=== PATIENT | female | born 1985 ===

== ENCOUNTER 2022-09-20 06:52 | Inpatient (IN) ==
[2022-09-20] MEDS ORDERED: OXYTOCIN/LR 20 UNIT/1,000 ML BAG IV ONE ×2 (07:09→13:21)
[2022-09-20] MEDS ORDERED: miSOPROStoL 200 MCG TABLET RECTAL PRN (07:09)
[2022-09-20] MEDS ORDERED: CLINDAMYCIN INJ 900 MG/50 ML PREMIX IV ONE (07:09)
[2022-09-20] MEDS ORDERED: CITRIC ACID/SODIUM CITRATE 30 ML UDCUP PO ONE (07:09)
[2022-09-20] MEDS ORDERED: TRANEXAMIC ACID 1,000 MG in SODIUM CHLORIDE 0.9% 100 ML IV PRN (07:09)
[2022-09-20] MEDS ORDERED: FAMOTIDINE 20 MG/2 ML VIAL IV ONE (07:09)
[2022-09-20] MEDS ORDERED: CARBOPROST TROMETHAMINE 250 MCG/ML AMP IM PRN (07:09)
[2022-09-20] MEDS ORDERED: METHYLERGONOVINE 0.2 MG/1 ML AMP IM PRN (07:09)
[2022-09-20] MEDS: LACTATED RINGERS 1,000 ML IV SCH ×2 (07:36→20:57)
[2022-09-20] MEDS ORDERED: OXYTOCIN 10 UNIT/ML VIAL IM ONE (07:41)
[2022-09-20] MEDS ORDERED: OXYTOCIN/LR 30 UNIT/1,000 ML BAG IV ONE (07:41)
[2022-09-20 07:52] LABS: Basophils % 0.3 % (0.0-0.8); Eosinophils # 0.1 10*3/uL (0.0-0.87); Eosinophils % 1.2 % (0.00-10.9); Hematocrit 33.7 VOL% (35.7-47.0); Immature Granulocytes % 0.7 %; Immature Granulocytes Absolute 0.05 #; Lymphocytes # 2.1 10*3/uL (1.4-4.0); Lymphocytes % 26.9 % (21.3-54.2); Mean Corpuscular HGB Conc 32.6 GM/DL (32-36); Mean Corpuscular Volume 85.8 FL (87-102); Mean Platelet Volume 10.9 FL (9.6-12.0); Monocytes # 0.4 10*3/uL (0.11-0.8); Monocytes % 5.8 % (1.7-12.7); Neutrophils % 65.1 % (38.7-73.9); Platelet Count 224 T/CUMM (130-400); Red Blood Count 3.93 MC/CUMM (3.8-5.5); White Blood Count 7.7 T/CUMM (4-12)
[2022-09-20] MEDS ORDERED: ONDANSETRON 4 MG/2 ML VIAL ONE (07:55)
[2022-09-20] MEDS ORDERED: METOCLOPRAMIDE 10 MG/2 ML VIAL ONE (07:55)
[2022-09-20] MEDS ORDERED: buprenorphine HCL 0.3 MG/ML VIAL ONE (07:55)
[2022-09-20 08:18] LABS: Albumin 2.5 G/DL (3.4-5.0); Bilirubin,Total 0.4 MG/DL (0.20-1.00); Calcium 8.9 MG/DL (8.5-10.1); Osmolality,Calculated 276.4 MOS/KG (273-304)
[2022-09-20] MEDS ORDERED: LACTATED RINGERS 1,000 ML IV ONE (09:21)
[2022-09-20 09:31] LABS: Cord Arterial Blood HCO3 21.4 MMOL/L
[2022-09-20 09:35] LABS: Cord Venous Blood HCO3 21.6 MMOL/L; Cord Venous Blood PCO2 47.8 MMHG; Cord Venous Blood PO2 30.8
[2022-09-20 09:40] LABS: Bacteria,Urine Occasional /HPF (Few); Bilirubin,Urine Negative (Negative); Blood, Urine Negative (Negative); Glucose,Urine (UA) Negative (Negative); Ketones,Urine Negative (Negative); Nitrite,Urine Negative (Negative); Protein,Urine Negative (Negative); RBC,Urine <1 /HPF (0-4); Squamous Epithelial Cell,Urine Occasional /HPF (0-10); Urine Appearance CLEAR (Clear); Urine Color Straw (Yellow); Urine Specific Gravity 1.005 (1.001-1.035); Urine Urobilinogen < 2.0 eU/dL (<2.0)
[2022-09-20] MEDS: ACETAMINOPHEN 500 MG TABLET PO SCH ×2 (13:14→18:59)
[2022-09-20] MEDS: KETOROLAC 30 MG/1 ML VIAL IV SCH ×2 (15:35→22:23)
[2022-09-20] MEDS ORDERED: oxyCODONE/ACETAMINOPHEN 5-325 MG TABLET PO PRN (16:34)
[2022-09-20 17:43] LABS: Basophils % 0.2 % (0.0-0.8); Eosinophils # 0.1 10*3/uL (0.0-0.87); Eosinophils % 0.6 % (0.00-10.9); Hematocrit 29.9 VOL% (35.7-47.0); Hemoglobin 9.6 GM/DL (12.0-16.0); Immature Granulocytes % 0.4 %; Immature Granulocytes Absolute 0.04 #; Lymphocytes % 20.4 % (21.3-54.2); Mean Corpuscular HGB Conc 32.1 GM/DL (32-36); Mean Corpuscular Volume 85.4 FL (87-102); Mean Platelet Volume 10.3 FL (9.6-12.0); Monocytes # 0.5 10*3/uL (0.11-0.8); Monocytes % 4.9 % (1.7-12.7); Neutrophils % 73.5 % (38.7-73.9); Platelet Count 201 T/CUMM (130-400); Red Cell Distribution Width 14.9 % (9.3-17.3); White Blood Count 9.6 T/CUMM (4-12)
[2022-09-20] MEDS ORDERED: CLINDAMYCIN INJ 900 MG/50 ML PREMIX IV SCH (18:00)
[2022-09-20] MEDS: CLINDAMYCIN INJ 900 MG/50 ML PREMIX IV SCH (21:16)
[2022-09-21] MEDS: ACETAMINOPHEN 500 MG TABLET PO SCH ×2 (01:15→06:04)
[2022-09-21] MEDS: KETOROLAC 30 MG/1 ML VIAL IV SCH (04:48)
[2022-09-21] MEDS: CLINDAMYCIN INJ 900 MG/50 ML PREMIX IV SCH (04:50)
[2022-09-21 06:02] LABS: Basophils % 0.2 % (0.0-0.8); Eosinophils # 0.1 10*3/uL (0.0-0.87); Eosinophils % 1.4 % (0.00-10.9); Hematocrit 28.5 VOL% (35.7-47.0); Hemoglobin 9.1 GM/DL (12.0-16.0); Immature Granulocytes % 0.4 %; Immature Granulocytes Absolute 0.03 #; Lymphocytes # 2.3 10*3/uL (1.4-4.0); Mean Corpuscular HGB Conc 31.9 GM/DL (32-36); Mean Corpuscular Volume 86.6 FL (87-102); Mean Platelet Volume 9.9 FL (9.6-12.0); Monocytes # 0.5 10*3/uL (0.11-0.8); Monocytes % 5.6 % (1.7-12.7); Neutrophils % 63.4 % (38.7-73.9); Platelet Count 175 T/CUMM (130-400); Red Blood Count 3.29 MC/CUMM (3.8-5.5); Red Cell Distribution Width 15.2 % (9.3-17.3)
[2022-09-21] MEDS: MULTIVITAMIN (PRENATAL) TABLET PO SCH (09:31)
[2022-09-21] MEDS: DOCUSATE SODIUM 100 MG CAPSULE PO SCH ×2 (09:31→21:06)
[2022-09-21] MEDS: MAGNESIUM HYDROXIDE SUSP 30 ML UDCUP PO PRN ×2 (09:32→21:06)
[2022-09-21] MEDS: METOCLOPRAMIDE 10 MG TABLET PO SCH ×2 (09:32→17:59)
[2022-09-21] MEDS: IBUPROFEN 800 MG TABLET PO PRN (12:36)
[2022-09-21] MEDS: oxyCODONE/ACETAMINOPHEN 5-325 MG TABLET PO PRN (22:03)
[2022-09-22] MEDS: METOCLOPRAMIDE 10 MG TABLET PO SCH ×2 (01:02→08:35)
[2022-09-22] MEDS: oxyCODONE/ACETAMINOPHEN 5-325 MG TABLET PO PRN ×2 (03:08→05:15)
[2022-09-22] MEDS: MAGNESIUM HYDROXIDE SUSP 30 ML UDCUP PO PRN (08:35)
[2022-09-22] MEDS: DOCUSATE SODIUM 100 MG CAPSULE PO SCH (08:36)
[2022-09-22] MEDS: MULTIVITAMIN (PRENATAL) TABLET PO SCH (08:36)
[2022-09-22] MEDS: IBUPROFEN 800 MG TABLET PO PRN (08:37)
[2022-09-22 18:55] VITALS: BP 129/76
== END 2022-09-22 14:00 | disposition home or self-care (01) | DRG 785 ==
LOC: N.LD 06:52 → N.OB 15:27
PROVIDERS: ADMIT Obstetrics & Gynecology; ATTEND Obstetrics & Gynecology